=== PATIENT | male | born 1945 | race Caucasian/White ===

== ENCOUNTER 2016-04-22 16:52 | Emergency (ER) | payer MEDICARE ==
[2016-04-22] MEDS ORDERED: Sodium Chloride 0.9% 1000 ML 1,000 ML ONE ×3 (16:54→20:11)
[2016-04-22] MEDS ORDERED: VERSED 5 MG/5 ML ONE (17:00)
[2016-04-22] MEDS ORDERED: DEXTROSE IV ONE ×3 (17:10)
[2016-04-22] MEDS ORDERED: VERSED IV ONE ×3 (17:10)
[2016-04-22] MEDS ORDERED: WATER IV ONE ×3 (17:10)
[2016-04-22 17:12] LABS: Mean Cell Volume 82.5 fl (78-100); Mean Platelet Volume 9.6 fl (6-9.5); Platelet Count 550 K/mm3 (150-450); Red Blood Count 4.58 M/mm3 (4.1-5.6); Red Cell Distribution Width 14.6 % (11.5-14.0); White Blood Count 13.4 K/mm3 (4.0-10.5)
[2016-04-22] MEDS ORDERED: Rocephin 1000 MG INJ IM STA (17:20)
[2016-04-22] MEDS ORDERED: Sodium Chloride 0.9% 1000 ML 1,000 ML IV STA ×7 (17:20→20:08)
[2016-04-22] MEDS ORDERED: NARCAN 1 MG/ML ONE ×2 (17:21→18:12)
[2016-04-22] MEDS ORDERED: NARCAN 1 MG/ML IV ONE ×2 (17:21→18:12)
[2016-04-22 17:26] LABS: INR 1.11 (0.8-3.0); PROTIME 12.4 SECONDS (8.83-12.87)
[2016-04-22] MEDS ORDERED: Sodium Chloride 0.9% 1000 ML 2,000 ML ONE ×2 (17:26→18:33)
[2016-04-22 17:29] LABS: PTT 30.4 SECONDS (24.1-36.1)
[2016-04-22] MEDS ORDERED: VERSED 5 MG/5 ML IV ONE (17:30)
[2016-04-22] MEDS ORDERED: Versed 50 MG/ 10 Ml MDV*** 50 MG in Sodium Chloride 0.9% 250 ML 240 ML IV SCH (17:30)
[2016-04-22 17:33] LABS: ALBUMIN 2.6 g/dL (3.4-5.0); ALKALINE PHOSPHATASE 126 U/L (46-116); ANION GAP 28.8 MEQ/L (5-15); BILIRUBIN,TOTAL 0.3 mg/dL (0.2-1.0); BLOOD UREA NITROGEN 102 mg/dL (9-20); CHLORIDE 91 mEq/L (98-107); Glucose 148 MG/DL (70-110); Potassium 5.3 mEq/L (3.5-5.1); SGOT/AST 33 U/L (15-37); SGPT/ALT 25 U/L (12-78); SODIUM 130 mEq/L (136-145); Total Protein 7.1 gm/dL (6.4-8.2)
[2016-04-22] MEDS ORDERED: DUONEB 0.5-3 MG/3 ml Neb IH ONE ×2 (17:34→18:37)
[2016-04-22 17:35] LABS: Carbon Dioxide 15.6 mEq/L (21-32); TROPONIN < 0.017 ng/ml (0.000-0.056)
[2016-04-22] MEDS ORDERED: ROCEPHIN 1 Gm-D5w 50 ml Bag** 50 ML IV ONE ×2 (17:49→18:00)
[2016-04-22 17:59] LABS: Bacteria FEW /HPF (NEGATIVE); COMPLETE URINE MICROSCOPIC? YES; Collection Type CATH; WBC 0-2 /HPF (0-5)
[2016-04-22 18:14] LABS: ATYPICAL LYMPHS 1 %; Eosinophil 1 % (0.00-3.0); Platelet Estimate NORMAL (NORMAL); Total Cells Counted 100
[2016-04-22] MEDS ORDERED: LEVOPHED 4 MG/4 ML 4,000 MCG in Dextrose 5%/Water IV Soln. 500 ML 500 ML IV PRN ×2 (18:18→18:24)
[2016-04-22] MEDS ORDERED: EPINEPHRINE ABBOJECT 1 MG ONE (19:04)
[2016-04-22] MEDS ORDERED: Sodium Chloride 0.9% 250 ML 250 ML IV ONE (19:04)
[2016-04-22 19:08] LABS: VBG BASE EXCESS -15.5 (-2.0-2.0); VBG CARBOXYHEMOGLOBIN 1.8 % T HGB (0.0-6.9); VBG HCO3- 14.2 meq/L (22-28); VBG HEMOGLOBIN 12.8; VBG O2 SATURATION 56.7 (95-100); VBG POTASSIUM 5.6 (3.5-5.1)
[2016-04-22 19:09] LABS: VBG pH 7.08 (7.32-7.42)
[2016-04-22 19:11] LABS: A-aADO2 212; ARTERIAL BLD GAS O2 SATURATION 100.1 % (95-100); ARTERIAL BLD GAS TIDAL VOLUME 650 cc; ARTERIAL BLOOD GAS BASE EXCESS -18.1 (-2.0-2.0); ARTERIAL BLOOD GAS FIO2 100 %; ARTERIAL BLOOD GAS PO2 476 mmHg (75-100); ARTERIAL BLOOD GAS pH 7.21 (7.35-7.45)
[2016-04-22] MEDS ORDERED: Sodium Chloride 3 ML UD NEBULES IH ONE (19:42)
[2016-04-22] MEDS ORDERED: VALIUM 10 MG/2 ML SYRINGE ONE (19:52)
[2016-04-22] MEDS ORDERED: VALIUM 10 MG/2 ML SYRINGE IV ONE (19:53)
--- NOTE | 2016-04-22 19:53 | ERPHSYRPT ---
- History of Present Illness Time Seen by Provider: 04/22/16 18:40 Source: family, EMS Exam Limitations: clinical condition Patient Subjective Stated Complaint: ems states pt family called ems due to pt found down on floor in home. ems states pt sob and was reponsive to verbal stimuli upon their arrival. Triage Nursing Assessment: pt pale, cool, moist skin. pt not verbal, using accessory muscle to breathe. diminished lung sounds throughout. preparing for intubation. pupils 2 very slugish. Physician History: EMS FOUND PATIENT WITH HISTORY OF DIABETES, CHRONIC BACK PAIN, NEUROPATHY, AND PERIPHERAL VASCULAR DISEASE, LETHARGIC, SHALLOW RESPIRATIONS. SON STATES PATIENT HAS BEEN ILL FOR 3 WEEKS, PRODUCTIVE COUGH. NO HISTORY OF FEVER, CHEST PAIN, EMESIS OR DIARRHEA. Timing/Duration: week(s) Activities at Onset: none Severity of Dyspnea-Max: moderate Severity of Dyspnea-Current: severe Possible Cause: unknown cause Modifying Factors: Improves With: coughing Associated Symptoms: cough (HISTORY GIVEN BY FAMILY) Allergies/Adverse Reactions: No Known Drug Allergies Allergy (Verified 04/22/16 17:08) Home Medications: Glyburide [Diabeta] 6 mg PO BID 06/18/13 [History] Metformin HCl 1000 mg [Glucophage 1000 MG] 1,000 mg PO BID 06/18/13 [History] Simvastatin 40 mg [Zocor 40 mg] 40 mg PO HS 06/18/13 [History] Hx Tetanus, Diphtheria Vaccination/Date Given: No Hx Influenza Vaccination/Date Given: Yes Hx Pneumococcal Vaccination/Date Given: No - Review of Systems Constitutional: Weakness, No Fever, No Chills Eyes: No Symptoms Ears, Nose, & Throat: No Symptoms Respiratory: Cough, Dyspnea Cardiac: No Chest Pain, No Edema, No Syncope Abdominal/Gastrointestinal: No Abdominal Pain, No Nausea, No Vomiting, No Diarrhea Genitourinary Symptoms: No Dysuria Musculoskeletal: No Back Pain, No Neck Pain Skin: No Rash Neurological: No Dizziness, No Focal Weakness, No Sensory Changes All Other Systems: Unable due to condition (DUE TO NONVERBAL COMMUNICATION) - Past Medical History Pertinent Past Medical History: Yes Neurological History: Peripheral Neuropathy ENT History: No Pertinent History Cardiac History: No Pertinent History Respiratory History: No Pertinent History Endocrine Medical History: Diabetes Type II Musculoskeletal History: Osteoarthritis GI Medical History: Cirrhosis History: No Pertinent History Psycho-Social History: Depression - Past Surgical History Past Surgical History: No Musculoskeletal: Other Other Surgical History: Removed callus from right foot. Removed facial malignancy. - Social History Smoking Status: Unknown if ever smoked How long have you smoked: 50 years Exposure to second hand smoke: No Drug Use: none Patient Lives Alone: No - Nursing Vital Signs Nursing Vital Signs: Initial Vital Signs Temperature 94.3 F Temperature Source Rectal Pulse Rate 103 Respiratory Rate 24 Blood Pressure [] 77/46 Pain Intensity 0 - Physical Exam General Appearance: severe distress, other (HYPOCAPNEA,) Eye Exam: other (PUPILS 3MM NONREACTIVE) Neck Exam: normal inspection, supple Respiratory Exam: crackles/rales, rhonchi, wheezing Cardiovascular/Chest Exam: normal heart sounds, regular rate/rhythm Abdominal/Gastrointestinal Exam: soft, normal bowel sounds, No tenderness, No distention, No mass Extremity Exam: non-tender, normal range of motion, normal inspection, no calf tenderness, no pedal edema Peripheral Pulses Exam: carotid (R): 1+, carotid (L): 1+, femoral (R): 1+, femoral (L): 1+, dorsalis-pedis (R): 1+ Neurologic Exam: package reinspector II-XII nml as tested, sensation nml, other (OBTUNDED, WITHDRAWS TO PAIN), No motor deficits Skin Exam: other (COOL AND DIAPHORETIN), No dry SpO2 Interpretation: hypoxic SpO2: 66 Oxygen Delivery: Ventilator - Course EKG Interpreted by Me: RATE, Sinus Rhythm, Left [place] Deviation, Other ( INTRAVENTRICULAR CONDUCTION DELAY) - Radiology Exams Chest X-ray Interpretation: Interpreted by me (ENDOTRACHEAL TUBE AT LEVEL OF RODOL[place], THERE IS A RIGHT INFRAHILAR INFILTRATE), Other (REPEAT CHEST XRAY-ET TUBE 2CM ABOVE [place], 3RD CHEST XRAY FOR CENTRAL LINE PLACEMENT, TIP IJ CATHETER LEVEL RIGHT ATRIUM) Ordered Tests: Active Orders 24 hr Category Date Time Status Accucheck STAT Care 04/22/16 17:20 Active CO2 Monitoring STAT Care 04/22/16 18:08 Active Wire Hanger STAT Care 04/22/16 17:20 Active Cath [Catheter-[place]] STAT Care 04/22/16 17:38 Active Central Venous Line Placement STAT Care 04/22/16 20:24 Active EKG-ER Only STAT Care 04/22/16 17:20 Active IV Insertion STAT Care 04/22/16 17:20 Active IV Insertion-2nd Peripheral STAT Care 04/22/16 17:38 Active Pulse Oximetry (ED) STAT Care 04/22/16 17:20 Active Rectal Temperature STAT Care 04/22/16 17:20 Active CHEST 1 VIEW (PORTABLE) Stat Exams 04/22/16 17:21 Taken CHEST 1 VIEW (PORTABLE) Stat Exams 04/22/16 18:30 Taken CHEST 1 VIEW (PORTABLE) Stat Exams 04/22/16 19:45 Taken ARTERIAL BLOOD GASES Stat Lab 04/22/16 18:34 Completed BLOOD CULTURE Stat Lab 04/22/16 17:00 Received CBC W DIFF Stat Lab 04/22/16 16:55 Completed CMP Stat Lab 04/22/16 16:55 Completed CULTURE,SPUTUM Stat Lab 04/22/16 17:37 Received CULTURE,URINE Stat Lab 04/22/16 17:37 Received Lactic Acid Stat Lab 04/22/16 18:34 Completed Lactic Acid Urgent Lab 04/22/16 17:00 Completed Manual Differential NC Stat Lab 04/22/16 16:55 Completed PROTIME WITH INR Stat Lab 04/22/16 16:55 Completed PTT Stat Lab 04/22/16 16:55 Completed TROPONIN Stat Lab 04/22/16 16:55 Completed UA W/ MICROSCOPIC Stat Lab 04/22/16 17:37 Completed VENOUS BLOOD GAS Stat Lab 04/22/16 17:00 Completed Intubate Patient STAT RT 04/22/16 18:04 Completed Intubation [Ventilator Management] STAT RT 04/22/16 18:04 Completed Respiratory Nebulizer STAT RT 04/22/16 18:37 Completed Medication Summary Generic Name Dose Route Start Last Admin Trade Name Freq PRN Reason Stop Dose Admin Ceftriaxone Sodium mg 04/22/16 17:20 Rocephin 1000 Mg Inj IM 04/22/16 17:21 STAT STA Discontinued Medications Generic Name Dose Route Start Last Admin Trade Name Freq PRN Reason Stop Dose Admin Albuterol/Ipratropium Confirm 04/22/16 17:34 Duoneb 0.5-3 Mg/3 Ml Neb Administered 04/22/16 17:35 Dose 3 ml IH .STK-MED ONE Albuterol/Ipratropium 3 ml 04/22/16 18:37 04/22/16 17:40 Duoneb 0.5-3 Mg/3 Ml Neb IH 04/22/16 18:38 3 ml STAT ONE Administration Diazepam 5 mg 04/22/16 19:53 Valium 10 Mg/2 Ml Syringe IV 04/22/16 19:54 STAT ONE Diazepam Confirm 04/22/16 19:52 Valium 10 Mg/2 Ml Syringe Administered 04/22/16 19:53 Dose 10 mg .ROUTE .STK-MED ONE Epinephrine HCl Confirm 04/22/16 19:04 Epinephrine Abboject 1 Mg Administered 04/22/16 19:05 Dose 1 mg .ROUTE .STK-MED ONE Heparin Sodium (Beef Lung) Confirm 04/22/16 19:31 Heparin Lock Flush 100 Units/Ml 5ml Syringe Administered 04/22/16 19:32 Dose 500 units .ROUTE .STK-MED ONE Heparin Sodium (Beef Lung) Confirm 04/22/16 19:32 Heparin Lock Flush 100 Units/Ml 5ml Syringe Administered 04/22/16 19:33 Dose 1,000 units .ROUTE .STK-MED ONE Midazolam HCl 50 mg/ Sodium 250 mls @ 10 mls/hr 04/22/16 17:30 04/22/16 17:28 Chloride IV 04/23/16 18:29 10 mls/hr .Q24H MESERET Administration Sodium Chloride 1,000 mls @ 999 mls/hr 04/22/16 17:20 04/22/16 17:00 Sodium Chloride 0.9% 1000 Ml IV 04/22/16 18:20 999 mls/hr .Q1H1M STA Administration Sodium Chloride Confirm 04/22/16 17:26 Sodium Chloride 0.9% 1000 Ml Administered 04/22/16 17:27 Dose 2,000 mls @ ud .ROUTE .STK-MED ONE Sodium Chloride 1,000 mls @ 999 mls/hr 04/22/16 17:45 04/22/16 17:10 Sodium Chloride 0.9% 1000 Ml IV 04/22/16 18:45 999 mls/hr .Q1H1M STA Administration Sodium Chloride 1,000 mls @ 999 mls/hr 04/22/16 17:45 04/22/16 17:25 Sodium Chloride 0.9% 1000 Ml IV 04/22/16 18:45 999 mls/hr .Q1H1M STA Administration Sodium Chloride 1,000 mls @ 999 mls/hr 04/22/16 17:47 04/22/16 18:01 Sodium Chloride 0.9% 1000 Ml IV 04/22/16 18:47 999 mls/hr .Q1H1M STA Administration Sodium Chloride Confirm 04/22/16 17:49 Sodium Chloride 0.9% 1000 Ml Administered 04/22/16 17:50 Dose 1,000 mls @ ud .ROUTE .STK-MED ONE Ceftriaxone Sodium/Dextrose Confirm 04/22/16 17:49 Rocephin 1 Gm-D5w 50 Ml Bag Administered 04/22/16 17:50 Dose 50 mls @ ud IV .STK-MED ONE Ceftriaxone Sodium/Dextrose 50 mls @ 100 mls/hr 04/22/16 18:00 04/22/16 18:01 Rocephin 1 Gm-D5w 50 Ml Bag IV 04/22/16 18:29 100 mls/hr STAT ONE Administration Norepinephrine 4,000 mcg/ 504 mls @ 7.56 mls/hr 04/22/16 18:18 Dextrose IV 05/22/16 18:17 .Q24H PRN SEVERE HYPOTENSION OR SEPSIS Protocol 1 MCG/MIN Norepinephrine 4,000 mcg/ 504 mls @ 7.56 mls/hr 04/22/16 18:24 04/22/16 18:26 Dextrose IV 05/22/16 18:23 7.56 mls/hr .Q24H PRN Administration SEVERE HYPOTENSION OR SEPSIS Protocol 1 MCG/MIN Sodium Chloride Confirm 04/22/16 18:33 Sodium Chloride 0.9% 1000 Ml Administered 04/22/16 18:34 Dose 2,000 mls @ ud .ROUTE .STK-MED ONE Sodium Chloride 1,000 mls @ 999 mls/hr 04/22/16 18:40 04/22/16 18:41 Sodium Chloride 0.9% 1000 Ml IV 04/22/16 19:40 999 mls/hr .Q1H1M STA Administration Sodium Chloride 1,000 mls @ 200 mls/hr 04/22/16 18:40 04/22/16 18:41 Sodium Chloride 0.9% 1000 Ml IV 04/22/16 23:39 200 mls/hr .Q5H STA Administration Sodium Chloride Confirm 04/22/16 19:04 Sodium Chloride 0.9% 250 Ml Administered 04/22/16 19:05 Dose 250 mls @ ud IV .STK-MED ONE Sodium Chloride 1,000 mls @ 500 mls/hr 04/22/16 20:08 04/22/16 20:17 Sodium Chloride 0.9% 1000 Ml IV 04/22/16 22:07 500 mls/hr .Q2H STA Administration Sodium Chloride Confirm 04/22/16 20:11 Sodium Chloride 0.9% 1000 Ml Administered 04/22/16 20:12 Dose 1,000 mls @ ud .ROUTE .STK-MED ONE Vancomycin HCl 250 mls @ 167 mls/hr 04/22/16 20:45 04/22/16 20:48 Vancomycin 1gm/ Ns 250ml IV 04/22/16 22:14 167 mls/hr STAT ONE Administration Vancomycin HCl Confirm 04/22/16 20:47 Vancomycin 1gm/ Ns 250ml Administered 04/22/16 20:48 Dose 250 mls @ ud IV .STK-MED ONE Midazolam HCl 5 mg 04/22/16 17:30 04/22/16 17:43 Versed 5 Mg/5 Ml IV 04/22/16 17:31 5 mg STAT ONE Administration Midazolam HCl 5 mg 04/22/16 17:00 Versed 5 Mg/5 Ml .ROUTE 04/22/16 17:01 .STK-MED ONE Naloxone HCl Confirm 04/22/16 17:21 Narcan 1 Mg/Ml Administered 04/22/16 17:22 Dose 2 mg .ROUTE .STK-MED ONE Naloxone HCl 1 mg 04/22/16 18:12 04/22/16 18:16 Narcan 1 Mg/Ml IV 04/22/16 18:13 1 mg STAT ONE Administration Naloxone HCl Confirm 04/22/16 18:12 Narcan 1 Mg/Ml Administered 04/22/16 18:13 Dose 2 mg .ROUTE .STK-MED ONE Naloxone HCl 1 mg 04/22/16 17:21 04/22/16 17:21 Narcan 1 Mg/Ml IV 04/22/16 17:22 1 mg STAT ONE Administration Sodium Chloride Confirm 04/22/16 19:42 Sodium Chloride 3 Ml Ud Nebules Administered 04/22/16 19:43 Dose 6 ml IH .STK-MED ONE Lab/Rad Data: Laboratory Result Diagrams 04/22/16 16:55 04/22/16 16:55 Laboratory Results 04/22/16 04/22/16 04/22/16 Range/Units 18:34 18:34 18:11 WBC (4.0-10.5) K/mm3 RBC (4.1-5.6) M/mm3 Hgb (12.5-18.0) gm/dl Hct (42-50) % MCV (78-100) fl MCH (26-32) pg MCHC (32-36) g/dl RDW (11.5-14.0) % Plt Count (150-450) K/mm3 MPV (6-9.5) fl Segmented Neutrophils (36.-66.) % Lymphocytes (Manual) (24-44) % Monocytes (Manual) (0.0-12.0) % Eosinophils (Manual) (0.00-3.0) % Differential Comment Atypical Lymphocytes % Platelet Estimate (NORMAL) INR (0.8-3.0) PTT (24.1-36.1) SECONDS Puncture Site RFEM pCO2 20 L* (35-45) mmHg pO2 476 H* (75-100) mmHg Base Excess -18.1 L (-2.0-2.0) O2 Saturation 97.0 (94-100) g/dF ABG pH 7.21 L* (7.35-7.45) ABG HCO3 8.0 L* (22-28) ABG O2 Sat (Measured) 100.1 H (95-100) % Dionicio Test NOT APPLICABLE VBG pH (7.32-7.42) VBG pCO2 at Pat Temp (42-55) mm/Hg VBG pO2 at Pat Temp (25-40) mm/Hg VBG HCO3 (22-28) meq/L VBG O2 Sat (David) (95-100) VBG Base Excess (-2.0-2.0) VBG Hemoglobin VBG Carboxyhemoglobin (0.0-6.9) % T HGB A-a Gradient 212 a/A Ratio 0.69 Hemoglobin 9.8 Carboxyhemoglobin 1.2 (0.0-6.9) % THgb Methemoglobin 1.9 H (1.4-1.5) % POC Potassium (3.5-5.1) Temperature 37.0 C POC O2 Flow Rate 100 % Vent Mode A/C Vent Rate 14 /MIN Tidal Volume 650 cc PEEP 3 cmH2O Sodium (136-145) mEq/L Potassium 4.6 (3.5-5.1) mEq/L Chloride (98-107) mEq/L Carbon Dioxide (21-32) mEq/L Anion Gap (5-15) MEQ/L BUN (9-20) mg/dL Creatinine (0.55-1.30) mg/dl Estimated GFR ML/MIN Glucose (70-110) MG/DL Lactic Acid 7.8 H (0.4-2.0) Calcium (8.5-10.1) mg/dL Total Bilirubin (0.2-1.0) mg/dL AST (15-37) U/L ALT (12-78) U/L Alkaline Phosphatase (46-116) U/L Troponin I (0.000-0.056) ng/ml Serum Total Protein (6.4-8.2) gm/dL Albumin (3.4-5.0) g/dL Ur Collection Type Urine Color (YELLOW) Urine Appearance (CLEAR) Urine pH (5-6) Ur Specific [place] (1.005-1.025) Urine Protein (Negative) Urine Glucose (UA) (NEGATIVE) mg/dL Urine Ketones (NEGATIVE) Urine Nitrite (NEGATIVE) Urine Bilirubin (NEGATIVE) Urine Urobilinogen (0-1) mg/dL Urine WBC (Auto) (NEGATIVE) Urine RBC (Auto) (0-5) Jarocho/ul Urine Microscopic RBC (0-2) /HPF Urine Microscopic WBC (0-5) /HPF Amorphous Crystals (NEGATIVE) /HPF Urine Bacteria (NEGATIVE) /HPF Influenza Type A Ag NEGATIVE (NEGATIVE) Influenza Type B Ag NEGATIVE (NEGATIVE) RSV (PCR) POSITIVE (Negative) Specimen Received 04/22/16 04/22/16 04/22/16 Range/Units 17:37 17:00 17:00 WBC (4.0-10.5) K/mm3 RBC (4.1-5.6) M/mm3 Hgb (12.5-18.0) gm/dl Hct (42-50) % MCV (78-100) fl MCH (26-32) pg MCHC (32-36) g/dl RDW (11.5-14.0) % Plt Count (150-450) K/mm3 MPV (6-9.5) fl Segmented Neutrophils (36.-66.) % Lymphocytes (Manual) (24-44) % Monocytes (Manual) (0.0-12.0) % Eosinophils (Manual) (0.00-3.0) % Differential Comment Atypical Lymphocytes % Platelet Estimate (NORMAL) INR (0.8-3.0) PTT (24.1-36.1) SECONDS Puncture Site pCO2 (35-45) mmHg pO2 (75-100) mmHg Base Excess (-2.0-2.0) O2 Saturation (94-100) g/dF ABG pH (7.35-7.45) ABG HCO3 (22-28) ABG O2 Sat (Measured) (95-100) % Dionicio Test VBG pH 7.08 L* (7.32-7.42) VBG pCO2 at Pat Temp 48 (42-55) mm/Hg VBG pO2 at Pat Temp 36 (25-40) mm/Hg VBG HCO3 14.2 L* (22-28) meq/L VBG O2 Sat (David) 56.7 L (95-100) VBG Base Excess -15.5 L (-2.0-2.0) VBG Hemoglobin 12.8 VBG Carboxyhemoglobin 1.8 (0.0-6.9) % T HGB A-a Gradient a/A Ratio Hemoglobin Carboxyhemoglobin (0.0-6.9) % THgb Methemoglobin (1.4-1.5) % POC Potassium 5.6 H (3.5-5.1) Temperature C POC O2 Flow Rate % Vent Mode Vent Rate /MIN Tidal Volume cc PEEP cmH2O Sodium (136-145) mEq/L Potassium (3.5-5.1) mEq/L Chloride (98-107) mEq/L Carbon Dioxide (21-32) mEq/L Anion Gap (5-15) MEQ/L BUN (9-20) mg/dL Creatinine (0.55-1.30) mg/dl Estimated GFR ML/MIN Glucose (70-110) MG/DL Lactic Acid 9.5 H (0.4-2.0) Calcium (8.5-10.1) mg/dL Total Bilirubin (0.2-1.0) mg/dL AST (15-37) U/L ALT (12-78) U/L Alkaline Phosphatase (46-116) U/L Troponin I (0.000-0.056) ng/ml Serum Total Protein (6.4-8.2) gm/dL Albumin (3.4-5.0) g/dL Ur Collection Type CATH Urine Color YELLOW (YELLOW) Urine Appearance CLEAR (CLEAR) Urine pH 5.0 (5-6) Ur Specific [place] 1.015 (1.005-1.025) Urine Protein 30 (Negative) Urine Glucose (UA) NEGATIVE (NEGATIVE) mg/dL Urine Ketones NEGATIVE (NEGATIVE) Urine Nitrite NEGATIVE (NEGATIVE) Urine Bilirubin NEGATIVE (NEGATIVE) Urine Urobilinogen 0.2 (0-1) mg/dL Urine WBC (Auto) NEGATIVE (NEGATIVE) Urine RBC (Auto) TRACE-LYSED (0-5) Jarocho/ul Urine Microscopic RBC 0-2 (0-2) /HPF Urine Microscopic WBC 0-2 (0-5) /HPF Amorphous Crystals MODERATE (NEGATIVE) /HPF Urine Bacteria FEW (NEGATIVE) /HPF Influenza Type A Ag (NEGATIVE) Influenza Type B Ag (NEGATIVE) RSV (PCR) (Negative) Specimen Received 04/22/16 1740 04/22/16 04/22/16 04/22/16 Range/Units 16:55 16:55 16:55 WBC 13.4 H (4.0-10.5) K/mm3 RBC 4.58 (4.1-5.6) M/mm3 Hgb 12.4 L (12.5-18.0) gm/dl Hct 37.8 L (42-50) % MCV 82.5 (78-100) fl MCH 27.0 (26-32) pg MCHC 32.8 (32-36) g/dl RDW 14.6 H (11.5-14.0) % Plt Count 550 H (150-450) K/mm3 MPV 9.6 H (6-9.5) fl Segmented Neutrophils 63 (36.-66.) % Lymphocytes (Manual) 33 (24-44) % Monocytes (Manual) 2 (0.0-12.0) % Eosinophils (Manual) 1 (0.00-3.0) % Differential Comment NORMAL Atypical Lymphocytes 1 % Platelet Estimate NORMAL (NORMAL) INR 1.11 (0.8-3.0) PTT 30.4 (24.1-36.1) SECONDS Puncture Site pCO2 (35-45) mmHg pO2 (75-100) mmHg Base Excess (-2.0-2.0) O2 Saturation (94-100) g/dF ABG pH (7.35-7.45) ABG HCO3 (22-28) ABG O2 Sat (Measured) (95-100) % Dionicio Test VBG pH (7.32-7.42) VBG pCO2 at Pat Temp (42-55) mm/Hg VBG pO2 at Pat Temp (25-40) mm/Hg VBG HCO3 (22-28) meq/L VBG O2 Sat (David) (95-100) VBG Base Excess (-2.0-2.0) VBG Hemoglobin VBG Carboxyhemoglobin (0.0-6.9) % T HGB A-a Gradient a/A Ratio Hemoglobin Carboxyhemoglobin (0.0-6.9) % THgb Methemoglobin (1.4-1.5) % POC Potassium (3.5-5.1) Temperature C POC O2 Flow Rate % Vent Mode Vent Rate /MIN Tidal Volume cc PEEP cmH2O Sodium 130 L (136-145) mEq/L Potassium 5.3 H (3.5-5.1) mEq/L Chloride 91 L (98-107) mEq/L Carbon Dioxide 15.6 L* (21-32) mEq/L Anion Gap 28.8 H (5-15) MEQ/L BUN 102 H (9-20) mg/dL Creatinine 8.52 H (0.55-1.30) mg/dl Estimated GFR 7 ML/MIN Glucose 148 H (70-110) MG/DL Lactic Acid (0.4-2.0) Calcium 8.8 (8.5-10.1) mg/dL Total Bilirubin 0.3 (0.2-1.0) mg/dL AST 33 (15-37) U/L ALT 25 (12-78) U/L Alkaline Phosphatase 126 H (46-116) U/L Troponin I < 0.017 (0.000-0.056) ng/ml Serum Total Protein 7.1 (6.4-8.2) gm/dL Albumin 2.6 L (3.4-5.0) g/dL Ur Collection Type Urine Color (YELLOW) Urine Appearance (CLEAR) Urine pH (5-6) Ur Specific [place] (1.005-1.025) Urine Protein (Negative) Urine Glucose (UA) (NEGATIVE) mg/dL Urine Ketones (NEGATIVE) Urine Nitrite (NEGATIVE) Urine Bilirubin (NEGATIVE) Urine Urobilinogen (0-1) mg/dL Urine WBC (Auto) (NEGATIVE) Urine RBC (Auto) (0-5) Jarocho/ul Urine Microscopic RBC (0-2) /HPF Urine Microscopic WBC (0-5) /HPF Amorphous Crystals (NEGATIVE) /HPF Urine Bacteria (NEGATIVE) /HPF Influenza Type A Ag (NEGATIVE) Influenza Type B Ag (NEGATIVE) RSV (PCR) (Negative) Specimen Received - Progress Progress: improved Progress Note: 04/22/16 22:48 PATIENT INTUBATED UPON ARRIVAL FOR HYPOXEMIA, HYPOCAPNEA, RESPIRATORY RATE 10, PULSE OXIMETRY 66%, AWAKE INTUBATION DUE TO HYPOTENSION SBP 66, UNDER DIRECT VISION PASSED SIZE 8.0 ENDOTRACHEAL TUBE THROUGH CORDS UNDER DIRECT VISION. TUBE FIXED AT 24CM, BREATH SOUNDS WHEEZES RIGHT=LEFT, MARKED FOREMAN SPUTUM PROJECTILE THROUGH ENDOTRACHEAL TUBE, WHILE SUCTIONING. ENDOTRACHEAL TUBE PULLED BACK 4CM DUE TO TIP OF ENDOTRACHEAL TUBE AT LEVEL OF RODOLFO. PATIENT ADMINISTERED TOTAL 6 LITERS NORMAL SALINE, INITIATED LEVOPHED 14MCG/MIN AFTER 4 LITERS NORMAL SALINE, WITH NO CHANGE IN SBP 66, RIGHT SUBCLAVIAN CENTRAL LINE PLACEMENT UNDER ASEPTIC TECHNIQUE AND LOCAL ANESTHESIA 1% LIDOCAINE, PLACEMENT OF CENTRAL LINE CATHETER CONFIRMED BY PORTABLE CHEST XRAY, LACTIC ACID 7.8, ADMINISTERED EPINEPHRINE INFUSION RATE 10MCG/MIN, IV ROCEPHIN 1GM, AND VANCOMYCIN 1GM AFTER 2 SETS OF BLOOD CULTURES OBTAINED. THE SPB IMPROVE TO BP75/ [address] HERRERA AT 1900 ACCEPTS TRANSFER TO [facility]. Blood Culture(s) Obtained: Yes Antibiotics given: Yes - Departure Time of Disposition: 21:15 Departure Disposition: Transfer Clinical Impression: SEPTIC SHOCK, RESPIRATORY FAILURE, PNEUMONIA, ACUTE RESPIRATORY FAILURE Condition: Critical Critical Care Time: Yes Critical Care Time(excluding separately billable procedures): ___ minutes (104) Referrals: SHASHA CASTELLANOS [Primary Care Provider] -
[2016-04-22] MEDS ORDERED: Vancomycin 1GM/ Ns 250ML*** 250 ML IV ONE ×2 (20:45→20:47)
[2016-04-22 21:01] VITALS: BP 77/46; PULSE 103
[2016-04-22 23:17] VITALS: O2SAT 66
[2016-04-23] MEDS ORDERED: Sodium Chloride 0.9% 1000 ML 2,000 ML ONE (01:21)
--- NOTE | 2016-04-23 08:57 | XRAY ---
Indication: Respiratory failure. Intubation. Comparison: June 25, 2014. Portable chest demonstrates new endotracheal tube tip 1 cm above the bladimir. Lungs inflated and clear. Heart is not enlarged. Bony thorax intact. Impression: Endotracheal tube tip 1 cm above the bladimir. No new/acute cardiopulmonary abnormalities.
--- NOTE | 2016-04-23 09:00 | XRAY ---
Indication: Endotracheal tube adjustment. Comparison: Taken earlier in the day. Portable chest demonstrates endotracheal tube withdrawal with the tip now 4 cm above the bladimir. Remaining visualized cardiopulmonary structures are stable and again unremarkable.
--- NOTE | 2016-04-23 09:02 | XRAY ---
Indication: Central line placement. Comparison: Taken earlier in the day. Limited portable chest demonstrates new right subclavian central venous access catheter with the tip projecting over the SVC. No pneumothorax. Remaining visualized cardiopulmonary structures and endotracheal tube unchanged and unremarkable.
== END 2016-04-22 21:00 | disposition short-term general hospital (02) ==
LOC: ED 16:52
DX: A41.89 Other specified sepsis (principal); R65.21 Severe sepsis with septic shock; J18.9 Pneumonia, unspecified organism; J80 Acute respiratory distress syndrome; E11.9 Type 2 diabetes mellitus without complications; I73.9 Peripheral vascular disease, unspecified; R05 Cough; Z79.84 Long term (current) use of oral hypoglycemic drugs
CPT/HCPCS: 31500; 36000; 36415; 36556; 36600; 51702; 71010; 80053; 81000; 82375; 82803; 82805; 82962; 83605; 84484; 85025; 85610; 85730; 87040; 87070; 87086; 87631; 93005; 93041; 94002; 94640; 94770; 94799; 96360; 96361; 96365; 96366; 96367; 96368; 96374; 96375; 99285; 99291; 99292; J0171; J0696; J1642; J2250; J2310; J3360; J3370